=== PATIENT | female | born 1985 | race Native Hawaiian/Other Pacific Islander ===

== ENCOUNTER 2017-06-25 09:57 | Observation (INO) | payer OTHER ==
[~2017-06-25] VITALS: Ht 157.5 cm; Wt 138.0 kg
[~2017-06-25 09:57] MED LIST: CRESTOR5 MG PO
[2017-06-25 10:48] VITALS: BP 146/93; TEMP 98.1; Ht 157.5 cm; Wt 138.0 kg
[2017-06-25] MEDS ORDERED: LORYNA1 TAB OR (11:06)
[2017-06-25] MEDS ORDERED: LEVO0.0218 PO (11:08)
[2017-06-25] MEDS ORDERED: CLOZAPINE100 MG PO (11:09)
[2017-06-25] MEDS ORDERED: LITHIUM CARB300 MG PO (11:10)
[2017-06-25] MEDS ORDERED: FORMULA E400 UNIT (11:11)
[2017-06-25] MEDS ORDERED: ZINC50 M1 OR (11:12)
[2017-06-25] MEDS ORDERED: CRESTOR5 MG PO (11:13)
[2017-06-25 14:21] LABS: PLATELET COUNT 283 K/uL (152-353)
[2017-06-25 14:35] LABS: POTASSIUM 3.7 mmol/L (3.6-5.2)
[2017-06-25 16:00] VITALS: BP 143/86; TEMP 98
--- NOTE | 2017-06-25 18:12 | NUR ---
IV TO R AC D/C'D WITH TIP INTACT PRESSURE DRESSING APPLIED.
[2017-06-25 20:00] VITALS: BP 127/84; TEMP 98.7
[2017-06-26] VITALS: BP 120/70; TEMP 99.3
[2017-06-26 03:52] VITALS: BP 112/61; TEMP 98.7
[2017-06-26 08:00] VITALS: BP 108/68; TEMP 98.1
--- NOTE | 2017-06-26 11:42 | NUR ---
D/C INSTRUCTIONS GIVEN. IV D/C'D PER DOCTORS ORDERS. PT AND FAMILY UNDERSTAND DISCHARGE INSTRUCTIONS. PT WILL F/U WITH [facility]. PT AMBULATED TO POV WITH FAMILY AT SIDE. NAD NOTED.
== END 2017-06-26 11:50 | disposition home or self-care (01) ==
LOC: MED/SURG 09:57
PROVIDERS: ADMIT Family Medicine
DX: R10.84 Generalized abdominal pain (principal); E03.8 Other specified hypothyroidism; F20.89 Other schizophrenia; E66.01 Morbid (severe) obesity due to excess calories; K85.90 Acute pancreatitis without necrosis or infection, unspecified
CPT/HCPCS: 80053; 81000; 82150; 83690; 85027; 99220; G0378; G0379

== ENCOUNTER 2019-02-13 14:00 | Outpatient (CLI) | payer OTHER ==
[~2019-02-13 14:00] MED LIST changes: +CLOZAPINE100 MG PO; +FORMULA E400 UNIT; +LEVO0.0218 PO; +LITHIUM CARB300 MG PO; +LORYNA1 TAB OR; +ZINC50 M1 OR
[2019-02-13 14:21] LABS: PLATELET COUNT 263 K/uL (152-353)
[2019-02-13 14:28] LABS: POTASSIUM 4.4 mmol/L (3.6-5.2)
== END 2019-02-13 19:54 | disposition home or self-care (01) ==
LOC: LAB 14:00
PROVIDERS: Nurse Practitioner Family
DX: Z00.00 Encounter for general adult medical examination without abnormal findings (principal); Z79.899 Other long term (current) drug therapy; E78.49 Other hyperlipidemia; E03.8 Other specified hypothyroidism; F20.89 Other schizophrenia
CPT/HCPCS: 80053; 80061; 80178; 83036; 84439; 84443; 85027

== ENCOUNTER 2019-12-29 07:49 | Outpatient (CLI) | payer OTHER | END 2019-12-29 22:23 | disposition home or self-care (01) | LOC: RESP 07:49 | DX: Z79.899 Other long term (current) drug therapy (principal); E03.9 Hypothyroidism, unspecified; E66.9 Obesity, unspecified; R53.83 Other fatigue; F20.9 Schizophrenia, unspecified | CPT/HCPCS: 93005 ==

== ENCOUNTER → 2021-02-20 | Outpatient (CLI) | payer OTHER ==
[2021-02-20 13:50] LABS: PLATELET COUNT 273 K/uL (152-353)
== END ==
LOC: LAB 13:06
PROVIDERS: ATTEND Nurse Practitioner Family
DX: Z79.899 Other long term (current) drug therapy (principal); F31.9 Bipolar disorder, unspecified; E55.9 Vitamin D deficiency, unspecified
CPT/HCPCS: 80178; 85027

== ENCOUNTER 2021-05-02 08:06 | Outpatient (CLI) | payer OTHER | END 2021-05-02 18:51 | disposition home or self-care (01) | LOC: LABW 08:06 | PROVIDERS: ATTEND Nurse Practitioner Family | DX: F31.89 Other bipolar disorder (principal); F20.89 Other schizophrenia; E03.8 Other specified hypothyroidism | CPT/HCPCS: 36415; 80178; 83970 ==

== ENCOUNTER 2021-08-02 16:53 | Outpatient (CLI) | payer OTHER ==
[2021-08-02 17:35] LABS: PLATELET COUNT 223 K/uL (152-353)
== END 2021-08-02 19:15 | disposition home or self-care (01) ==
LOC: LAB 16:53
PROVIDERS: ATTEND Nurse Practitioner Family
DX: F31.89 Other bipolar disorder (principal); F20.89 Other schizophrenia; E78.49 Other hyperlipidemia; E03.8 Other specified hypothyroidism; Z79.899 Other long term (current) drug therapy; E55.9 Vitamin D deficiency, unspecified; E28.2 Polycystic ovarian syndrome; F81.89 Other developmental disorders of scholastic skills; R53.83 Other fatigue
CPT/HCPCS: 80053; 80061; 80178; 82306; 82607; 83036; 84439; 84443; 85027

== ENCOUNTER 2021-11-14 09:11 | Outpatient (CLI) | payer OTHER | END 2021-11-14 18:47 | disposition home or self-care (01) | LOC: RAD 09:11 | PROVIDERS: ATTEND Nurse Practitioner Family | DX: R93.89 Abnormal findings on diagnostic imaging of other specified body structures (principal) ==